=== PATIENT | male | born 1965 | race Caucasian/White ===

== ENCOUNTER 2022-12-14 14:38 | Emergency (ER) | payer OTHER, BC ==
[2022-12-14] MEDS ORDERED: Sodium Chloride 0.9% 10 ML Syringe FLUSH PRN (14:48)
[2022-12-14] MEDS ORDERED: Alum Hydrox/Mag Hydrox/Simeth 15 ML, Lidocaine 2% 15 ML PO ONE ×2 (14:50)
[2022-12-14] MEDS ORDERED: Sodium Chloride 0.9% 1,000 ML IV ONE (15:10)
[2022-12-14] MEDS ORDERED: Aspirin 81 MG Tab.Chew PO ONE (15:19)
[2022-12-14] MEDS ORDERED: Heparin Sodium 5,000 Units/ML Vial IVPUSH ONE (15:20)
[2022-12-14] MEDS ORDERED: Morphine 2 MG/ML SYRINGE IVPUSH ONE (15:23)
[2022-12-14] MEDS ORDERED: Heparin Sodium/D5W 25,000 UNITS/500 ML BAG IV SCH (15:30)
[2022-12-14 15:39] LABS: CORONAVIRUS COVID-19 NAA NEGATIVE (NEGATIVE)
== END 2022-12-14 16:05 ==
LOC: JP.ED 14:38
DX: I21.3 ST elevation (STEMI) myocardial infarction of unspecified site (principal); R06.02 Shortness of breath; I10 Essential (primary) hypertension; D75.1 Secondary polycythemia; Z86.16 Personal history of COVID-19; Z88.8 Allergy status to other drugs, medicaments and biological substances; Z20.822 Contact with and (suspected) exposure to COVID-19
CPT/HCPCS: 0241U; 36415; 71045; 80048; 84145; 84484; 85025; 86140; 93005; 96361; 96374; 96375; 99285; A9270; J1644; J7030